=== PATIENT | male | born 2000 | race Two or more races ===

== ENCOUNTER 2018-07-01 14:22 | Emergency (ER) | payer OTHER, SELFPAY ==
[~2018-07-01] VITALS: Ht 175.3 cm; Wt 72.0 kg
[2018-07-01] MEDS ORDERED: SODIUM CHLORIDE 0.9% 1,000 ML IV ONE (15:34)
[2018-07-01] MEDS ORDERED: KETOROLAC 30MG/ML VIAL IV STA (15:34)
[2018-07-01 16:08] LABS: CHLORIDE 106 mEq/L (98-107)
[2018-07-01 16:09] LABS: BASOPHILS % 0.4 % (0.0-2.0); EOSINOPHILS % 0.4 % (0.0-5.0); HEMATOCRIT. 47.1 % (42.0-52.0); HEMOGLOBIN. 16.9 g/dL (14.0-18.0); LYMPHOCYTES % 18.4 % (20.0-50.0); MEAN CORPUSCULAR HEMOGLOBIN 32.8 pg (28.0-32.0); MEAN CORPUSCULAR VOLUME 91.3 fL (80.0-94.0); MEAN PLATELET VOLUME 8.9 fl (7.4-10.4); MONOCYTES % 11.8 % (2.0-8.0); PLATELET 259 x1000/uL (130-400); RED BLOOD CELL COUNT 5.16 mill/uL (4.7-6.1); RED CELL DISTRIBUTION WIDTH 13.1 % (11.6-14.6)
[2018-07-01 16:12] LABS: ETHANOL BLOOD < 10 mg/dL
[2018-07-01 16:17] LABS: CREATINE KINASE 217 IU/L (39-308)
[2018-07-01 16:21] LABS: INR 1.1; PROTHROMBIN TIME 11.2 sec (9.6-11.0)
[2018-07-01 17:02] VITALS: BP 116/76
== END 2018-07-01 17:29 | disposition home or self-care (01) ==
LOC: EDSEX 14:22 → ER 14:22
DX: R55 Syncope and collapse (principal); M79.18 Myalgia, other site
CPT/HCPCS: 36415; 71045; 80053; 80320; 82550; 85025; 85610; 93005; 96361; 96374; 99284; J1885; J7030; G0480